=== PATIENT | female | born 1950 | race Caucasian/White ===

== ENCOUNTER 2020-10-11 07:20 | Day surgery (SDC) | payer MEDICARE ==
--- NOTE | 2020-10-10 14:12 | NUR ---
CONFIRMED APPOINTMENT
[~2020-10-11] VITALS: Ht 170.2 cm; Wt 77.3 kg
[2020-10-11 07:57] LABS: INR 1.07 (0.85-1.17); PROTIME 12.8 SECONDS (11.6-15.0)
[2020-10-11 08:08] LABS: CALCIUM 10.5 mg/dL (8.5-10.1); CARBON DIOXIDE 27.1 mmol/L (21.0-32.0); CREATININE - SERUM 1.1 mg/dL (0.6-1.3); POTASSIUM - SERUM 4.1 mmol/L (3.5-5.1)
[2020-10-11 08:37] LABS: BASOPHILS 0.6 % (0-2); EOSINOPHILS 3.4 % (0-7); HEMATOCRIT 40.8 % (36.0-48.0); IMMATURE GRANULOCYTES 0.7 % (0-5); LYMPHOCYTE ABS# 1.34 10x3/uL (1.18-3.74); LYMPHOCYTES 12.8 % (15-50); MCH 28.2 pg (26.0-34.0); MCHC 31.9 g/dL (31.0-37.0); MCV 88.5 fL (80.0-100.0); MEAN PLATELET VOLUME 11.4 fL (7.4-10.4); MONOCYTES 11.3 % (2-11); NEUTROPHIL ABS# 7.47 10x3/uL (1.56-6.13); NEUTROPHILS 71.2 % (40-80); PLATELET COUNT 403 10x3/uL (130-400); RBC 4.61 10x6/uL (4.00-5.40); WBC 10.5 10x3/uL (4.8-10.8)
[2020-10-11] MEDS ORDERED: LOVENOX80 MG/0.8 SC (08:43)
[2020-10-11] MEDS ORDERED: VITAMIN D-32000 UNIT PO (08:44)
[2020-10-11] MEDS ORDERED: LISINOPRIL30 MG PO (08:44)
[2020-10-11] MEDS ORDERED: LOW DOSE ASPIRI81 M1 PO (08:45)
[2020-10-11 08:54] VITALS: Ht 170.2 cm; Wt 77.3 kg
--- NOTE | 2020-10-11 12:31 | NUR ---
1115 VITAL SIGNS ARE BEING DOCUMENTED ON POST PROCEDURE FORM IN THE PAPER CHART.
--- NOTE | 2020-10-11 16:31 | NUR ---
1240 PT C/O BEING UNCOMFORTABLE AND ASKING FOR PAIN MEDICATION. PT STATES THAT HER PAIN IS FROM LAST WEEKS SURGERY. NO PAIN AT SITE OF BONE MARROW BX. 1305 IV DC'D. CATHETER TIP INTACT. NO BLEEDING AT SITE. COBAN DRESSING APPLIED. PT REPORTS HER PAIN LEVEL HAS REMAINED THE SAME W/O SIGNIFICANT RELIEF. PAIN LEVEL IS A 3 OUT OF 10 AT PRESENT.
== END 2020-10-11 13:15 | disposition home or self-care (01) ==
LOC: D.CT 07:20
PROVIDERS: Radiology Diagnostic Radiology; ATTEND Internal Medicine Hematology & Oncology
DX: C85.90 Non-Hodgkin lymphoma, unspecified, unspecified site (principal); I82.622 Acute embolism and thrombosis of deep veins of left upper extremity

== ENCOUNTER → 2020-10-14 09:42 | Outpatient (CLI) | payer MEDICARE ==
[2020-10-11 08:54] VITALS: BMI 26.7
--- NOTE | ~2020-10-14 | EC ---
PATIENT:HONEY DAWSON DATE OF SERVICE: 10/15/19 SEX: F MEDICAL RECORD: [id number] DATE OF : 52 LOCATION:D[facility] AGE OF PATIENT: 70 ADMISSION DATE: 10/14/20 REFERRING PHYSICIAN: INTERPRETING PHYSICIAN: JANIA PERLA M.D. ECHOCARDIOGRAM REPORT ECHO CHARGES 4 ECHO COMPLETE Date: 10/14/20 CLINICAL DIAGNOSIS: BASELINE FOR CHEMO ECHOCARDIOGRAPHIC MEASUREMENTS (adult normal given) AC root (d.<3.7cm) 3.0 cm LV Septum d (<1.2 cm> 0.9 cm Valve Excursion 1.8 cm LV Septum (systole) 1.3 cm Left Atria (s.<4.0cm> 4.1 cm LVPW d(<1.2cm) 1.0 cm RV (d.<2.3cm) 3.6 cm LVPW (sytole) 1.5 cm LV diastole(<5.6CM) 5.2 cm MV E-F(>70mm/sec) cm LV systole 3.4 cm LVOT Diameter 1.7 cm MV exc.(>10mm) 0.9 cm Est.ejection fraction (50-75%) % DOPPLER: LVIT cm/sec A 90 cm/sec E 74 cm/sec LA cm/sec RVSP 40 mmHg LVOT 166 cm/sec AOP1/2T m/s Asc. Ao 188 cm/sec RVOT 68 cm/sec RA cm/sec PA 96 cm/sec AV Gradient Peak 14.1 mmHg AV Mean 8.2 mmHg AV Area 1.7 cm MV Gradient Peak 3.8 mmHg MV Mean 2.1 mmHg MV Area cm COMMENTS: Drier And Grinder Tender: Brent MERCADO Principal Investigator: 2 Dr. Perla TAPE# Pericardial Effusion N INDICATION: Baseline for chemotherapy LEFT VENTRICLE: Normal LV size and function ejection fraction 60% with no wall motion abnormalities MITRAL VALVE: Trivial regurgitation but no prolapse LEFT ATRIUM: Normal size AORTIC VALVE: No stenosis or regurgitation ECHOCARDIOGRAM REPORT [id number] HONEY DAWSON RIGHT VENTRICLE: Normal size and function TRICUSPID VALVE: No regurgitation RIGHT ATRIUM: Normal size PERICARDIUM: No effusion seen IMPRESSION: #1 normal LV size and function ejection fraction 60% #2 trivial mitral regurgitation at 0816 JANIA PERLA M.D. CC: [id number] DICTATION DATE: 10/16/20 0816 SALES ASSISTANT DISPLAYS: DM 10/16/20 1451 DEP CLI 10/14/20 [address] [place] [address]
[~2020-10-14 09:42] MED LIST: LISINOPRIL30 MG PO; LOVENOX80 MG/0.8 SC; LOW DOSE ASPIRI81 M1 PO; VITAMIN D-32000 UNIT PO
== END | disposition home or self-care (01) ==
LOC: D.ECHO 09:42
PROVIDERS: ATTEND Internal Medicine Hematology & Oncology
DX: C85.90 Non-Hodgkin lymphoma, unspecified, unspecified site (principal); I82.622 Acute embolism and thrombosis of deep veins of left upper extremity

== ENCOUNTER 2020-10-15 05:55 | Day surgery (SDC) | payer MEDICARE ==
[~2020-10-15] VITALS: Ht 170.2 cm; Wt 77.3 kg
--- NOTE | ~2020-10-15 | HEMODYNAMI ---
PATIENT:HONEY DAWSON MEDICAL RECORD: [id number] : 52 [id number] ADMISSION DATE: 10/15/20 Generatedon:19:27 Patient name: HONEY DAWSON Patient #: [id number] SSN: : 1950 Date of study: 10/15/2020 Page: Of Hemodynamic Procedure Report Patient Data Patient Demographics Procedure consent was obtained First Name: HONEY Gender: Female Last Name: SAMIR : 1950 Patient #: [id number] Age: 70 year(s) Race: Unknown Additional ID: [id number] Contact details [address]: [address] [place] [address] State: [place] City: [place] Zip code: [address] Admission Admission Data Admission Date: 10/15/2020 Admission Time: 5:55 Procedure Procedure Types Cath Procedure Peripheral Cath Diagnostic Procedure Miscellaneous Procedure Description Procedure Date Procedure Date: 10/15/2020 Procedure Start Time: 8:45 Procedure Staff Name Function John Sun MD Performing Physician Nick Orellana RT Monitor Elyse Swain RN Nurse KASSIE MEJIA RT Scrub Procedure Data Cath Procedure Fluoroscopy Diagnostic fluoroscopy Total fluoroscopy Time: 0.4 time: 0.4 min min Diagnostic fluoroscopy Total fluoroscopy dose: dose: 6.46 mGy 6.46 mGy Procedure Medications Medication Administration Route Dosage Lidocaine 1% added to field 20 Heparin Flush Bag added to field 1 bags (1000units/500ml NS) Lidocaine 1% added to field 20 Versed I.V. 1 mg Fentanyl I.V. 50 mcg Hemodynamics Rest Heart Rate: 79 (bpm) Snapshots Pre Cath Intra NCS Post Cath Vital Signs Time Heart Resp SPO2 etCO2 NIBP (mmHg) Rhythm Pain Sedation Rate (ipm) (%) (mmHg) Status Level (bpm) 8:38:51 80 26 100 22.5 159/74(112) NSR 0 (11) 10(A) , No pain 8:43:16 78 19 100 30 153/67(104) NSR 0 (11) 10(A) , No pain 8:47:40 78 20 100 25.5 156/65(99) NSR 0 (11) 8(A) , No pain 8:52:00 77 18 100 30.7 141/59(99) NSR 0 (11) 8(A) , No pain 8:56:20 80 29 100 27.7 142/62(98) NSR 0 (11) 8(A) , No pain 9:00:38 77 22 100 29.2 143/62(103) NSR 0 (11) 8(A) , No pain 9:05:02 75 20 100 29.2 139/53(91) NSR 0 (11) 8(A) , No pain 9:09:25 74 20 30 137/56(94) NSR 0 (11) 8(A) , No pain 9:13:47 73 22 100 28.5 135/55(87) NSR 0 (11) 8(A) , No pain 9:18:07 72 24 100 29.2 135/57(92) NSR 0 (11) 10(A) , No pain 9:22:23 74 21 29.2 138/63(100) NSR 0 (11) 10(A) , No pain 9:27:22 75 21 28.5 Measuring NSR 0 (11) 10(A) , No pain Medications Time Medication Route Dose Verified Delivered Reason Notes Effect iveness by by 8:38:39 Lidocaine 1% added 20ml John Lopez used for to vial Corinne Sun MD procedure field MAGUIRE 8:38:53 Heparin Flush added 1 John Lopez used for Bag to bags Corinne Sun MD procedure (1000units/500ml field MAGUIRE NS) 8:40:27 Lidocaine 1% added 20ml John Lopez used for to vial Corinne Sun MD procedure field MAGUIRE 8:47:20 Versed I.V. 1 mg John Pappas for Wiliam Sun sedation RN 8:47:36 Fentanyl I.V. 50 John Pappas for mcg Wiliam Sun sedation pc maintenance technician Log Time Note 8:16:34 Elyse Swain RN sent for patient. Start room use. 8:16:36 Time tracking: Regular hours (M-F 7:00 - 5:00) 8:16:49 Plan of Care:Hemodynamics will remain stable., Cardiac rhythm will remain stable., Comfort level will be maintained., Respiratory function will remain adequate., Patient/ family verbilizes understanding of procedure., Procedure tolerated without complication., Recovers from procedure without complications.. 8:16:53 Use device set IR Diagnostic 8:16:55 Bag Decanter (2002S) opened to sterile field. 8:16:56 Sterile Angiographic Pack opened to sterile field. 8:16:56 Tegaderm 4 x 4 (1626W) opened to sterile field. 8:17:06 Patient received from Outpatients to IR Alert and oriented. Tansferred to table in Supine position. 8:17:15 Signed procedure consent form obtained from patient. 8:17:19 Correct patient and procedure confirmed by team. 8:17:19 ECG and BP/O2 sat monitors applied to patient. 8:17:21 Full Disclosure recording started 8:17:22 8:17:25 H&P Date Dictated: 10/15/2020 H&P Addendum completed by physician on day of procedure. (MUST COMPLETE FOR ALL OUTPATIENTS). 8:17:27 Pre-procedure instructions explained to patient. 8:17:28 Pre-op teaching completed and patient verbalized understanding. 8:17:29 Family in waiting room. 8:17:31 Patient NPO since Midnight. 8:18:47 Is patient on blood thinner?No 8:18:50 Patient diabetic? No. 8:18:52 8:18:52 ----Pre-sedation anethsthesia assessment.---- 8:19:05 Previous problem with sedation/anesthesia? No ? 8:19:08 Snore? No 8:19:09 Sleep apnea? No 8:19:15 Deviated septum? No 8:19:16 Opens mouth fully? Yes 8:19:19 Sticks out tongue? Yes 8:19:24 Airway obstruction? No ? 8:19:30 Dentures? No ? 8:19:40 IV patent on arrival in right hand with 0.9% NaCl at [facility]. 8:30:24 Alarms reviewed by R. N. 8:30:24 Sharps counted by scrub and verified by R.N. 8:30:43 Right Chest was prepped with chlora-prep and draped in sterile fashion. 8:37:38 Vital chart was started 8:38:39 Lidocaine 1% 20ml vial added to field was administered by John Sun MD; used for procedure; Verbal order read back and verified. 8:38:53 Heparin Flush Bag (1000units/500ml NS) 1 bags added to field was administered by John Sun MD; used for procedure; Verbal order read back and verified. 8:40:27 Lidocaine 1% 20ml vial added to field was administered by John Sun MD; used for procedure; Verbal order read back and verified. 8:43:27 Physician arrived 8:43:28 --------ALL STOP TIME OUT------ 8:43:28 Final Timeout: patient, procedure, and site verified with staff and physician. All members of the team are in agreement. 8:43:33 Right chest site verified by team. 8:43:36 Fire Safety Assessment: A--An alcohol-based skin anteseptic being used preoperatively., C--Open oxygen or nitrous oxide is being used. 8:43:46 3a) 45-59 Moderately reduced kidney function. 8:44:08 Maximum allowable contrast dose (3.7 X eGFR X 0.75)130.425 ml. 8:44:13 Sedation plan: IV Moderate Sedation Medication:Versed, Fentanyl 8:44:25 Baseline sample Acquired. 8:45:02 Procedure started. 8:45:08 Local anesthetic to Chest area with Lidocaine 1% by John Sun MD.INITIAL ACCESS ONLY 8:45:15 POWERLINE TUNN CATH WITH CUFF([id number]) opened to sterile field. 8:47:20 Versed 1 mg I.V. was administered by Elyse Swain RN; for sedation; Verbal order read back and verified. 8:47:36 Fentanyl 50 mcg I.V. was administered by Elyse Swain RN; for sedation; Verbal order read back and verified. 8:50:26 Micropuncture VSI 4FR kit opened to sterile field. 9:02:04 PICC line was trimmed to 24cm and advanced to the superior vena cava.Position verified under fluoroscopy. 9:04:38 3-0 Vicryl Single Pack [id number] opened to sterile field. 9:04:47 Dermabond Pen opened to sterile field. 9:14:03 2-0 Silk 685H opened to sterile field. 9:16:23 Procedure ended.(Physican Out) 9:19:48 Fluoroscopy time 00.40 minutes. 9:19:55 Fluoroscopy dose: 6.46 mGy 9:19:55 Flurop Dose total: 6.46 9:20:30 PICC SUTURED IN AND BIO PATCH AND OPSITE APPLIED 9:21:36 Procedure and supply charges have been captured, reviewed, submitted and are correct. 9:21:37 Post procedure instruction explained to patient.Patient verbalizes understanding. 9:27:11 Report given to Outpatients. 9:27:16 Patient transfered to Outpatients with Stretcher. 9:27:44 Vital chart was stopped Device Usage Item Name Manufacture Quantity Catalog Hospital Part Current Minima l Lot# / Number Charge Number Stock Stock Serial# Code Bag Decanter Microtek 1 [id number] 5 () [employer] Sterile Cardinal [address] [id number] 5 Angiographic Health Pack Tegaderm 4 x 3M 1 1626W 169002 [id number] [id number] 5 4 (1626W) POWERLINE Bard 1 [id number] 231129 [id number] 1 [id number] TUNN CATH WITH CUFF([id number]) Micropuncture VSI VASCULAR 1 7266V 185947 421619 5 VSI 4FR kit SOLUTIONS 3-0 Vicryl Ethicon 1 [id number] 506295 391763 5 Single Pack [id number] Dermabond Pen Ethicon 1 [id number] 151133 234508 5 2-0 Silk 685H Ethicon 1 685H 551753 33233 376513 5 Signature Audit [place] Stage Time Signature Unsigned Intra-Procedure 10/15/2020 Nick 9:27:40 AM [facility] RT (R) (CV) [facility] [address] [place] [address]
[2020-10-15 06:53] LABS: ANION GAP 15.1 mmol/L (8-16); CALCIUM 10.4 mg/dL (8.5-10.1); CARBON DIOXIDE 24.9 mmol/L (21.0-32.0); CREATININE - SERUM 1.2 mg/dL (0.6-1.3)
[2020-10-15 06:54] LABS: BASOPHILS 0.8 % (0-2); EOSINOPHILS 5.1 % (0-7); HEMATOCRIT 40.9 % (36.0-48.0); HEMOGLOBIN 13.3 g/dL (12-16); IMMATURE GRANULOCYTES 1.4 % (0-5); LYMPHOCYTES 15.1 % (15-50); MCH 28.5 pg (26.0-34.0); MCHC 32.5 g/dL (31.0-37.0); MCV 87.8 fL (80.0-100.0); MEAN PLATELET VOLUME 10.7 fL (7.4-10.4); MONOCYTES 12.5 % (2-11); NEUTROPHIL ABS# 6.44 10x3/uL (1.56-6.13); NEUTROPHILS 65.1 % (40-80); PLATELET COUNT 435 10x3/uL (130-400); RBC 4.66 10x6/uL (4.00-5.40); RDW 14.3 % (11.5-14.5); WBC 9.9 10x3/uL (4.8-10.8)
[2020-10-15 07:02] LABS: APTT 35.6 SECONDS (22.8-39.4); INR 1.08 (0.85-1.17); PROTIME 12.9 SECONDS (11.6-15.0)
[2020-10-15 07:34] VITALS: Ht 170.2 cm; Wt 77.3 kg
--- NOTE | 2020-10-15 15:27 | NUR ---
1055 DRESSED, AWAKE & ALERT. PROVIDED WITH D/C INFORMATION INCLUDING: MED REC, PICC LINE INFORMATION, RTC APPT., & OPS D/C INSTRUCTIONS. PT VOICED UNDERSTANDING. TO PRIVATE CAR PER WHEELCHAIR BY STAFF. HOME WITH MR. DAWSON. Lewis GARCIA R.N.
== END 2020-10-15 10:55 | disposition home or self-care (01) ==
LOC: D.RAD 05:55
PROVIDERS: General Practice; ATTEND Internal Medicine Hematology & Oncology
DX: C81.24 Mixed cellularity Hodgkin lymphoma, lymph nodes of axilla and upper limb (principal); C85.90 Non-Hodgkin lymphoma, unspecified, unspecified site; I82.622 Acute embolism and thrombosis of deep veins of left upper extremity; F41.9 Anxiety disorder, unspecified

== ENCOUNTER → 2020-12-20 10:12 | Day surgery (SDC) | payer MEDICARE ==
[2020-10-15 07:34] VITALS: BMI 26.7
--- NOTE | 2020-12-19 16:35 | NUR ---
CONFIRMED PT APPT FOR 12/20/20 ARRIVAL TIME: 1000
[2020-12-20 10:55] LABS: BASOPHILS 0.9 % (0-2); EOSINOPHILS 1.3 % (0-7); HEMATOCRIT 40.2 % (36.0-48.0); HEMOGLOBIN 13.3 g/dL (12-16); LYMPHOCYTES 7.8 % (15-50); MCH 28.7 pg (26.0-34.0); MCHC 33.1 g/dL (31.0-37.0); MCV 86.7 fL (80.0-100.0); MEAN PLATELET VOLUME 8.3 fL (7.4-10.4); MONOCYTES 14.8 % (2-11); NEUTROPHILS 75.2 % (40-80); RBC 4.64 10x6/uL (4.00-5.40); RDW 18.1 % (11.5-14.5); WBC 8.4 10x3/uL (4.8-10.8)
[2020-12-20 11:04] LABS: ANION GAP 13.7 mmol/L (8-16); CALCIUM 10.2 mg/dL (8.5-10.1); CARBON DIOXIDE 27.5 mmol/L (21.0-32.0); CREATININE - SERUM 0.9 mg/dL (0.6-1.3); POTASSIUM - SERUM 4.2 mmol/L (3.5-5.1)
[2020-12-20 11:08] LABS: PLATELET COUNT 273 10x3/uL (130-400)
[2020-12-20 11:16] LABS: APTT 29.8 SECONDS (22.8-39.4); INR 1.32 (0.85-1.17); PROTIME 15.1 SECONDS (11.6-15.0)
--- NOTE | 2020-12-25 15:30 | NUR ---
on 12/20/20 pt arrived to ops for procedure Nick Orellana flushed each port and there were no problems with either. An emergency came up and the pt did not wish to stay. We instructed her to please call if any problems.
== END | disposition home or self-care (01) ==
LOC: D.SP 10:12
PROVIDERS: Radiology Diagnostic Radiology; ATTEND Internal Medicine Hematology & Oncology
DX: C85.90 Non-Hodgkin lymphoma, unspecified, unspecified site (principal); Z53.9 Procedure and treatment not carried out, unspecified reason